=== PATIENT | male | born 1990 | race American Indian/Alaskan Native ===

== ENCOUNTER 2017-01-02 12:33 | Emergency (ER) | payer BC ==
[2017-01-02 13:26] LABS: Basophils % (Auto) 0.4 % (0.0-1.8); Eosinophils % (Auto) 0.5 % (0.0-4.3); Hematocrit 42.8 % (35.5-45.6); Hemoglobin 14.7 gm/dl (11.8-15.2); Mean Corpuscular HGB Conc 34 % (32-34); Mean Corpuscular Hemoglobin 31 pg (28-32); Mean Corpuscular Volume 91 fl (84-94); Platelet Count 231 K/mm3 (140-440); Red Blood Count 4.69 M/mm3 (3.65-5.03); Red Cell Distribution Width 11.7 % (13.2-15.2); White Blood Count 5.7 K/mm3 (4.5-11.0)
[2017-01-02 13:41] LABS: Anion Gap 20 mmol/L; Blood Urea Nitrogen 9 mg/dL (9-20); Calcium 9.4 mg/dL (8.4-10.2); Carbon Dioxide 24 mmol/L (22-30); Chloride 101.4 mmol/L (98-107); Glucose 104 mg/dL (75-100); Potassium 4.2 mmol/L (3.6-5.0); Sodium 141 mmol/L (137-145)
[2017-01-02 19:55] VITALS: BP 126/75
--- NOTE | 2017-01-02 22:19 | Emergency Department Report ---
HPI - General Chief Complaint: Chest Pain Time Seen by Provider: 01/02/17 22:10 - HPI HPI: Chest pain, sore throat for the past 2 days. Worse today. Patient has not taken any medication for his condition. Denies any significant past medical history. Denies any alleviating or exacerbating factors. ED Past Medical Hx - Past Medical History Previous Medical History?: Yes Hx Arthritis: Yes - Surgical History Past Surgical History?: No - Family History Family history: hypertension - Social History Smoking Status: Never Smoker Substance Use Type: None - Medications Home Medications: Home Medications Medication Instructions Recorded Confirmed Last Taken Type Amoxicillin [Amoxicillin TAB] 875 mg PO BID #20 tablet 01/02/17 Unknown Rx Ketorolac [Toradol] 10 mg PO Q6H PRN #14 tablet 01/02/17 Unknown Rx ED Review of Systems ROS: Stated complaint: CHEST PAINS/HARD TO SWOLLOW/HEADACHE Other details as noted in HPI Comment: All other systems reviewed and negative ENT: throat pain Respiratory: cough Cardiovascular: chest pain Physical Exam - Physical Exam Vital Signs: Vital Signs 01/02/17 01/02/17 01/02/17 12:46 14:55 19:53 Temperature 98.6 F 98.6 F 98.9 F Pulse Rate 91 H 70 80 Respiratory 18 20 16 Rate Blood Pressure 139/89 Blood Pressure 133/89 126/75 [Right] O2 Sat by Pulse 100 100 99 Oximetry 01/02/17 19:54 Temperature Pulse Rate Respiratory 16 Rate Blood Pressure Blood Pressure [Right] O2 Sat by Pulse Oximetry Physical Exam: Gen. alert and oriented 3 in no distress Throat: Pharyngeal erythema Head atraumatic normocephalic Eyes PERR LA EOMI Chest regular rate and rhythm normal S1-S2 lungs clear bilaterally Abdomen soft nondistended Back no point tenderness paravertebral tenderness Neuro no focal deficit. Psych normal mood. ED Course Vital Signs 01/02/17 01/02/17 01/02/17 12:46 14:55 19:53 Temperature 98.6 F 98.6 F 98.9 F Pulse Rate 91 H 70 80 Respiratory 18 20 16 Rate Blood Pressure 139/89 Blood Pressure 133/89 126/75 [Right] O2 Sat by Pulse 100 100 99 Oximetry 01/02/17 19:54 Temperature Pulse Rate Respiratory 16 Rate Blood Pressure Blood Pressure [Right] O2 Sat by Pulse Oximetry ED Medical Decision Making - Lab Data Result diagrams: 01/02/17 13:07 01/02/17 13:07 Critical care attestation.: If time is entered above; I have spent that time in minutes in the direct care of this critically ill patient, excluding procedure time. ED Disposition Clinical Impression: Pharyngitis Disposition: DC-01 TO HOME OR SELFCARE Is pt being admited?: No Does the pt Need Aspirin: No Condition: Stable Prescriptions: Amoxicillin [Amoxicillin TAB] 875 mg PO BID #20 tablet Ketorolac [Toradol] 10 mg PO Q6H PRN #14 tablet PRN Reason: Pain Referrals: PRIMARY CAREMD [Primary Care Provider] - 3-5 Days JERAD HUNTLEY MD [Referring] - 3-5 Days
== END 2017-01-02 22:49 | disposition home or self-care (01) ==
LOC: ED 12:33
DX: J02.9 Acute pharyngitis, unspecified (principal); R07.9 Chest pain, unspecified; M19.90 Unspecified osteoarthritis, unspecified site
CPT/HCPCS: 36415; 80048; 84484; 85025; 93005; 93010; 99284